=== PATIENT | female | born 1955 | race Caucasian/White ===

== ENCOUNTER 2020-09-09 17:40 | Emergency (ER) | payer OTHER ==
[~2020-09-09] VITALS: Ht 162.6 cm; Wt 79.5 kg
[2020-09-09] MEDS ORDERED: HYDR25TA PO (17:53)
[2020-09-09] MEDS ORDERED: EMPA10TA PO (17:53)
[2020-09-09] MEDS ORDERED: ASPI-1111 PO (17:53)
[2020-09-09] MEDS ORDERED: ATOR10TA69 PO (18:06)
[2020-09-09] MEDS ORDERED: METF-446 PO (18:06)
[2020-09-09] MEDS ORDERED: OMEP20CA12 PO (18:06)
[2020-09-09] MEDS ORDERED: LOSA25TA21 PO (18:06)
[2020-09-09 19:48] LABS: BASOPHILS % (AUTO) 0.9 % (0.0-2.0); EOSINOPHILS % (AUTO) 2.5 % (1.0-6.0); HEMATOCRIT 44.6 % (36-46); HEMOGLOBIN 14.9 g/dL (12.0-16.0); LYMPHOCYTES # (AUTO) 2.6 K/uL (1.0-4.8); LYMPHOCYTES % (AUTO) 37.9 % (22.0-44.0); MEAN CORPUSCULAR HEMOGLOBIN 29.3 pg (26.0-34.0); MEAN CORPUSCULAR HGB CONC 33.4 G/dL (31.0-37.0); MEAN CORPUSCULAR VOLUME 88 fL (80-100); MONOCYTES # (AUTO) 0.4 K/uL (0.1-1.0); MONOCYTES % (AUTO) 6.3 % (2.0-9.0); NEUTROPHILS # (AUTO) 3.6 K/uL (1.8-7.7); NEUTROPHILS % (AUTO) 52.4 % (40.0-70.0); PLATELET COUNT (AUTO) 284 K/uL (150-450); RED CELL DISTRIBUTION WIDTH 13.2 % (11.5-14.5)
[2020-09-09 20:03] LABS: CALCIUM, TOTAL 9.9 mg/dL (8.8-10.5); CREATININE 0.96 mg/dL (0.60-1.30); POTASSIUM 3.7 mmol/L (3.5-5.1)
[2020-09-09 20:06] LABS: ALBUMIN 4.5 g/dL (3.4-5.0); BILIRUBIN,TOTAL 0.4 mg/dL (0.1-1.0); TOTAL PROTEIN, SERUM 8.3 g/dL (6.4-8.2)
[2020-09-09 20:29] LABS: GLUCOSE,POINT OF CARE 129 MG/DL (70-110)
[2020-09-09 23:00] VITALS: BP 125/88
== END 2020-09-09 23:17 | disposition home or self-care (01) ==
LOC: EMS 17:40
DX: R51.9 Headache, unspecified (principal); R07.89 Other chest pain; E11.9 Type 2 diabetes mellitus without complications; I10 Essential (primary) hypertension; Z88.0 Allergy status to penicillin; Z88.5 Allergy status to narcotic agent; Z79.84 Long term (current) use of oral hypoglycemic drugs; Z79.82 Long term (current) use of aspirin
CPT/HCPCS: 85379; 93005; 99285; 36415-L1; 36415-TC; 71045-TC

== ENCOUNTER 2022-08-08 08:15 | Emergency (ER) | payer MEDICARE, MEDICAID ==
[~2022-08-08] VITALS: Ht 162.6 cm; Wt 78.6 kg
[~2022-08-08 08:15] MED LIST: ALBU8HFA IH; APIX2.5T PO; ASPI-825 PO; ATOR10TA69 PO; DEXA1 PO; EMPA10TA3 PO; FAMO20 PO; GLIP10TA9 PO; METF-446 PO
[2022-08-08] MEDS ORDERED: ASPI-1444 PO (08:21)
[2022-08-08] MEDS ORDERED: OMEP20CA12 PO (08:21)
[2022-08-08] MEDS ORDERED: ATOR20TA65 PO (08:21)
[2022-08-08] MEDS ORDERED: HYDR25TA PO (08:21)
[2022-08-08] MEDS ORDERED: EMPA25TA3 PO (08:21)
[2022-08-08] MEDS ORDERED: LOSA-381 PO (08:21)
[2022-08-08] MEDS ORDERED: FLUT16SP NASAL (08:21)
[2022-08-08 08:23] VITALS: BP 148/75
[2022-08-08 08:48] LABS: BASOPHILS % (AUTO) 0.7 % (0.0-2.0); EOSINOPHILS % (AUTO) 1.7 % (1.0-6.0); HEMATOCRIT 43.2 % (36-46); HEMOGLOBIN 14.7 g/dL (12.0-16.0); LYMPHOCYTES # (AUTO) 1.6 K/uL (1.0-4.8); LYMPHOCYTES % (AUTO) 23.8 % (22.0-44.0); MEAN CORPUSCULAR HEMOGLOBIN 29.6 pg (26.0-34.0); MEAN CORPUSCULAR HGB CONC 33.9 G/dL (31.0-37.0); MEAN CORPUSCULAR VOLUME 87 fL (80-100); MONOCYTES # (AUTO) 0.3 K/uL (0.1-1.0); MONOCYTES % (AUTO) 3.9 % (2.0-9.0); NEUTROPHILS # (AUTO) 4.7 K/uL (1.8-7.7); NEUTROPHILS % (AUTO) 69.9 % (40.0-70.0); PLATELET COUNT (AUTO) 262 K/uL (150-450); RED BLOOD CELL COUNT(AUTO) 4.95 MIL/uL (4.00-5.20); RED CELL DISTRIBUTION WIDTH 13.1 % (11.5-14.5)
[2022-08-08 08:59] LABS: INR 0.9 (0.9-1.1); PROTHROMBIN TIME 9.8 SEC (9.4-11.6)
[2022-08-08 09:04] LABS: CALCIUM, TOTAL 9.3 mg/dL (8.8-10.5); CREATININE 1.18 mg/dL (0.60-1.30); POTASSIUM 3.8 mmol/L (3.5-5.1)
[2022-08-08 09:06] LABS: APPEARANCE,URINE CLEAR (CLEAR); BILIRUBIN,URINE NEGATIVE (NEGATIVE); GLUCOSE, URINE (UA) >=1000 mg/dL (NEGATIVE); KETONES,URINE NEGATIVE (NEGATIVE); LEUKOCYTE ESTERASE ,URINE NEGATIVE (NEGATIVE); NITRATE,URINE NEGATIVE (NEGATIVE); OCCULT BLOOD,URINE NEGATIVE (NEGATIVE); PROTEIN,URINE NEGATIVE (NEGATIVE); SPECIFIC GRAVITIY, URINE 1.024 (1.003-1.030); UROBILINOGEN,URINE <=1.0 mg/dL (<=1.0)
[2022-08-08 09:07] LABS: ALBUMIN 4.1 g/dL (3.4-5.0); BILIRUBIN,TOTAL 0.6 mg/dL (0.1-1.0); TOTAL PROTEIN, SERUM 7.7 g/dL (6.4-8.2)
[2022-08-08 09:31] LABS: BACTERIA,URINE None Seen /HPF (None Seen); RBC,URINE None Seen /HPF (0-2)
== END 2022-08-08 11:56 | disposition home or self-care (01) ==
LOC: EMS 08:45
DX: R07.89 Other chest pain (principal); J45.909 Unspecified asthma, uncomplicated; E11.9 Type 2 diabetes mellitus without complications; E78.00 Pure hypercholesterolemia, unspecified; I10 Essential (primary) hypertension; Z88.0 Allergy status to penicillin; Z88.1 Allergy status to other antibiotic agents; Z88.5 Allergy status to narcotic agent; Z88.4 Allergy status to anesthetic agent; Z88.8 Allergy status to other drugs, medicaments and biological substances
CPT/HCPCS: 71045; 80053; 81001; 81003; 82962; 83880; 84484; 85025; 85610; 85730; 93005; 99285; 36415-L1; 36415-TC

== ENCOUNTER 2023-06-21 08:57 | Emergency (ER) | payer MEDICARE, MEDICAID ==
[~2023-06-21] VITALS: Ht 162.6 cm; Wt 75.0 kg
[~2023-06-21 08:57] MED LIST changes: +ALBU18HF12 IH; -ALBU8HFA IH; -APIX2.5T PO; +ASPI-1444 PO; -ASPI-825 PO; -ATOR10TA69 PO; +ATOR20TA65 PO; -DEXA1 PO; -EMPA10TA3 PO; +EMPA25TA3 PO; -FAMO20 PO; +FLUT16SP NASAL; -GLIP10TA9 PO; +HYDR25TA PO; +LOSA-381 PO; +OMEP20CA12 PO
[2023-06-21 09:06] VITALS: TEMP 98
[2023-06-21] MEDS ORDERED: KETOROLAC TROMETHAMINE 60 MG/2 ML VIAL IM ONE (11:45)
[2023-06-21 12:36] VITALS: BP 116/68; PULSE 81; RESP 18
== END 2023-06-21 12:54 | disposition home or self-care (01) ==
LOC: EMS 08:57
DX: R51.9 Headache, unspecified (principal); E11.9 Type 2 diabetes mellitus without complications; E78.00 Pure hypercholesterolemia, unspecified; I10 Essential (primary) hypertension; J45.909 Unspecified asthma, uncomplicated; Z88.0 Allergy status to penicillin; Z88.5 Allergy status to narcotic agent; Z88.8 Allergy status to other drugs, medicaments and biological substances
CPT/HCPCS: 99285; 70450; 96372; J1885